=== PATIENT | female | born 1945 | race Two or more races ===

== ENCOUNTER 2022-06-28 09:36 | Inpatient (IN) | payer OTHER ==
[~2022-06-28] VITALS: Ht 165.1 cm; Wt 82.6 kg
[2022-07-07] MEDS ORDERED: INTEGRA PLUS C1 EACH PO (06:08)
[2022-07-07] MEDS ORDERED: BACTRIM DS TAB1 EACH PO (06:08)
[2022-07-07] MEDS ORDERED: OXYC1TAB9 PO (06:08)
[2022-07-07] MEDS ORDERED: XARELTO10 MG PO (06:08)
== END 2022-07-07 13:02 | DRG 470 ==
LOC: SURH 07-05 07:27 → O/R 07-05 07:27 → SURH 07-05 08:49
PROVIDERS: ADMIT Orthopaedic Surgery Sports Medicine; ATTEND Orthopaedic Surgery Sports Medicine
PROC: 0SRD0J9 Replacement of Left Knee Joint with Synthetic Substitute, Cemented, Open Approach (ICD-10-PCS; principal; 2022-07-05 14:00)
DX: M17.12 Unilateral primary osteoarthritis, left knee (principal); I10 Essential (primary) hypertension; E78.5 Hyperlipidemia, unspecified; Z96.652 Presence of left artificial knee joint; Z20.822 Contact with and (suspected) exposure to COVID-19

== ENCOUNTER 2022-07-07 15:39 | Inpatient (IN) | payer OTHER ==
[~2022-07-07] VITALS: Ht 165.1 cm; Wt 81.6 kg
[~2022-07-07 15:39] MED LIST: BACTRIM DS TAB1 EACH PO; INTEGRA PLUS C1 EACH PO; OXYC1TAB9 PO; XARELTO10 MG PO
--- NOTE | 2022-07-07 15:47 | NUR ---
SE RECIBE PTE ALERTA Y ORIENTADA X3 CUAL REFIERE LE DIERON DE FLORINDA HOY CON LA HEMOGLOBINA BAJA, PTE REFIERE EN 7. SE ALYSSA S/V Y SE UBICA. PTE OPERADA POR , EL DMITRY BURNSADO
--- NOTE | 2022-07-07 17:24 | NUR ---
SE LLAMA A BANCO DE OMER Y LA LIC. KEESHA ME NOTIFICA QUE PTE TIENE EXPEDIENTE Y ORDEN DE TRANSFUSION DE OMER ACTIVA POR LO CUAL ENVIARAN 1 UNIDAD DE PRBC LO MAS ANTES POSIBLE.
--- NOTE | 2022-07-07 17:35 | NUR ---
SE ALYSSA MUESTRAS DE LAB MAURICIO ORDEN MEDICA Y BAJO MEDIDAS ASEPTICAS. SE ADMINISTRA MEDS MAURICIO ORDEN MEDICA Y SE ORIENTA SOBRE LOS MISMOS. PTE PENDIENTE A RESULTADOS.
== END 2022-07-08 22:46 | disposition home or self-care (01) | DRG 812 ==
LOC: ER 15:39 → SURG 18:07
PROVIDERS: ADMIT Orthopaedic Surgery Sports Medicine; ATTEND Orthopaedic Surgery Sports Medicine
PROC: 30233N1 Transfusion of Nonautologous Red Blood Cells into Peripheral Vein, Percutaneous Approach (ICD-10-PCS; principal; 2022-07-07)
DX: D50.0 Iron deficiency anemia secondary to blood loss (chronic) (principal); Z20.822 Contact with and (suspected) exposure to COVID-19